=== PATIENT | male | born 1985 | race Caucasian/White ===

== ENCOUNTER 2017-01-22 09:43 | Emergency (ER) | payer BC ==
--- NOTE | 2017-01-22 10:19 | UC ---
Lower Extremity/Ankle HPI - HPI Summary HPI Summary: 31 y/o male with no PMH/ surgery wiht b/l ankles presents with ankle pain, states was running to clock in yesterday so we wouldn't be late at work, felt a small amount of pain, however woke up this morning with more pain. + ice, did not take any medication for it. able to walk, although + pain with increased walking. no pain with driving . no swelling, bruising - History of Current Complaint Chief Complaint: UCLowerExtremity Stated Complaint: RIGHT FOOT PAIN Time Seen by Provider: 01/22/17 10:06 Hx Obtained From: Patient Onset/Duration: Sudden Onset, Lasting Days, Worse Since - this AM Severity Initially: Mild Severity Currently: Mild - Allergies/Home Medications Allergies/Adverse Reactions: Allergies Allergy/AdvReac Type Severity Reaction Status Date / Time No Known Allergies Allergy Verified 01/22/17 09:51 PMH/Surg Hx/FS Hx/Imm Hx Previously Healthy: Yes - Surgical History Surgical History: Yes Surgery Procedure, Year, and Place: big toe - Social History Alcohol Use: Rare Substance Use Type: None Smoking Status (MU): Never Smoked Tobacco Review of Systems Musculoskeletal: Arthralgia, Decreased ROM Is Patient Immunocompromised?: No All Other Systems Reviewed And Are Negative: Yes Physical Exam Triage Information Reviewed: Yes Appearance: Well-Appearing, No Pain Distress, Well-Nourished Vital Signs: Initial Vital Signs Temp 99.4 F 01/22/17 09:47 Pulse 89 01/22/17 09:47 Resp 18 01/22/17 09:47 BP 183/100 01/22/17 09:47 Pulse Ox 99 01/22/17 09:47 Vital Signs Reviewed: Yes Musculoskeletal: Positive: Other: - PT pulses 2+ b/l, neg homans sign, achilles tendon testing shows to be intact, pain over inssertion of achilles onto terry, no warmth, edema, echymosis. sensation intact to light touch grossly throughout. Neurological Exam: Normal Psychological Exam: Normal Skin Exam: Normal Lower Extremity Course/Dx - Course Course Of Treatment: achilles tendon strain, decreased activity, incrase stretching, NSAIDs, ICE. patient in agreement, follow up with ortho within 1- 2 weeks if no imrpovement. BP elevated, likely due to pain, follow up with PCP within 2-3 days for repeat check. - Differential Dx/Diagnosis Differential Diagnosis/HQI/PQRI: Arthritis, Contusion, Dislocation Provider Diagnoses: right achillies tendon strain Discharge - Discharge Plan Condition: Fair Disposition: HOME Prescriptions: Ibuprofen [Eql Ibuprofen] 400 mg PO Q6H PRN #90 tab PRN Reason: Pain Patient Education Materials: Muscle Strain (ED) Referrals: No Primary Care Phys,NOPCP [Primary Care Provider] - Shantanu Mendosa MD [Medical Doctor] - Additional Instructions: - ice after activity - work note for today - Motrin 400 mg every 6-8 hours for pain x 24 hours to decrease swelling - elevate foot - stretches as shown - Follow up with your primary for elevated blood pressure within 2-3 days when pain controlled. Free clinic listed for your information
== END 2017-01-22 10:30 | disposition home or self-care (01) ==
LOC: UCEAST 09:43
DX: S86.011A Strain of right Achilles tendon, initial encounter (principal); X58.XXXA Exposure to other specified factors, initial encounter; Y93.02 Activity, running
CPT/HCPCS: 99202; G0463

== ENCOUNTER 2018-07-17 19:27 | Emergency (ER) | payer BC ==
[2018-07-17 19:55] VITALS: BP 164/82
--- NOTE | 2018-07-17 20:56 | UC ---
Complaint Male HPI - HPI Summary HPI Summary: foul odor and tingling in penis for approx 1-2 wks. reports girlfriend having a UTI and he thinks he may have the same thing. nothing makes it better/worse. - History of Current Complaint Chief Complaint: UCGU Stated Complaint: ODOR IN URINE Time Seen by Provider: 07/17/18 20:16 Hx Obtained From: Patient Pain Intensity: 0 Pain Scale Used: 0-10 Numeric Aggravating Factor(s): Voiding Alleviating Factor(s): Nothing - Allergies/Home Medications Allergies/Adverse Reactions: Allergies Allergy/AdvReac Type Severity Reaction Status Date / Time No Known Allergies Allergy Verified 07/17/18 19:45 Home Medications: Home Medications Amlodipine Besylate [Amlodipine 2.5 mg tab] 5 mg PO DAILY 07/17/18 [History Confirmed 07/17/18] Hydrochlorothiazide TAB* [Hydrodiuril TAB*] 25 mg PO DAILY 07/17/18 [History Confirmed 07/17/18] PMH/Surg Hx/FS Hx/Imm Hx Cardiovascular History: Hypertension - Surgical History Surgical History: Yes Surgery Procedure, Year, and Place: big toe - Social History Alcohol Use: Rare Substance Use Type: None Smoking Status (MU): Never Smoked Tobacco Review of Systems All Other Systems Reviewed And Are Negative: Yes Constitutional: Negative: Fever, Chills Skin: Negative: Rash Gastrointestinal: Negative: Abdominal Pain Genitourinary: Positive: Other - tingling when urinating. Negative: Dysuria, Hematuria, Frequency, Urgency Physical Exam Triage Information Reviewed: Yes Appearance: Well-Appearing Vital Signs: Initial Vital Signs Temp 98.3 F 07/17/18 19:39 Pulse 96 07/17/18 19:39 Resp 16 07/17/18 19:39 BP 164/82 07/17/18 19:39 Pulse Ox 97 07/17/18 19:39 Vital Signs Reviewed: Yes Respiratory Exam: Normal Cardiovascular Exam: Normal Abdomen Description: Negative: CVA Tenderness (R), CVA Tenderness (L) Male Genital Exam: Negative: Other - DECLINED exam Complaint Male Course/Dx - Course Course Of Treatment: Urinary tingling and foul odor of urine. UA showed 3+ protein for which I've asked him to f/u w/ pcp about. No obvious UTI and have sent urine for gc/ chlamydia. exam unremarkable. - Differential Dx/Diagnosis Differential Diagnosis/HQI/PQRI: Urinary Tract Infection, Other Provider Diagnosis: Bad odor of urine Discharge - Sign-Out/Discharge Documenting (check all that apply): Patient Departure All imaging exams completed and their final reports reviewed: No Studies - Discharge Plan Condition: Good Disposition: HOME Patient Education Materials: Dysuria (ED) Referrals: No Primary Care Phys,NOPCP [Primary Care Provider] - Additional Instructions: Please follow up with your primary care provider for your elevated blood pressure and the protein in your urine. At this point there is no obvious infection and we have sent your urine out for further testing. - Billing Disposition and Condition Condition: GOOD Disposition: Home
[2018-07-21 16:46] LABS: Neisseria gonorrhoeae (GC) RNA Negative (Negative)
== END 2018-07-17 20:50 | disposition home or self-care (01) ==
LOC: UCEAST 19:27
DX: R82.90 Unspecified abnormal findings in urine (principal); R20.2 Paresthesia of skin; I10 Essential (primary) hypertension
CPT/HCPCS: 81003; 87491; 87591; 99211; G0463

== ENCOUNTER 2018-09-29 19:41 | Emergency (ER) | payer BC ==
[2018-09-29 20:46] VITALS: BP 153/81
--- NOTE | 2018-09-29 21:00 | UC ---
UC General HPI - HPI Summary HPI Summary: R ear feels like it has fluid in it x 2 days. no fever, uri or drainage. - History of Current Complaint Chief Complaint: UCEar Stated Complaint: RIGHT EAR PAIN Time Seen by Provider: 09/29/18 20:47 Hx Obtained From: Patient Timing: Constant Pain Intensity: 3 Associated Signs & Symptoms: Negative: Fever, Headache - Allergy/Home Medications Allergies/Adverse Reactions: Allergies Allergy/AdvReac Type Severity Reaction Status Date / Time No Known Allergies Allergy Verified 09/29/18 20:41 PMH/Surg Hx/FS Hx/Imm Hx Cardiovascular History: Hypertension - Surgical History Surgical History: Yes Surgery Procedure, Year, and Place: big toe ingrown toenail - Family History Known Family History: Positive: Non-Contributory - Social History Occupation: Employed Full-time Alcohol Use: Rare Substance Use Type: None Smoking Status (MU): Never Smoked Tobacco Review of Systems All Other Systems Reviewed And Are Negative: No Constitutional: Negative: Fever, Chills Skin: Negative: Rash ENT: Positive: Ear Ache - R. Negative: Sore Throat, Nasal Discharge, Sinus Congestion, Sinus Pain/Tenderness Neurological: Negative: Headache Physical Exam Triage Information Reviewed: Yes Appearance: Well-Appearing Vital Signs: Initial Vital Signs Temp 98.9 F 09/29/18 20:42 Pulse 91 09/29/18 20:42 Resp 16 09/29/18 20:42 BP 153/81 09/29/18 20:42 Pulse Ox 100 09/29/18 20:42 Vital Signs Reviewed: Yes Eyes: Positive: Conjunctiva Clear ENT: Positive: Pharynx normal, Other - No auricular adenopahty or mastoid tenderness. TM's obscured by cerumen impaction.. Negative: Nasal congestion, Nasal drainage Neck: Positive: Supple, Nontender, No Lymphadenopathy Respiratory: Positive: No respiratory distress Cardiovascular: Positive: RRR Musculoskeletal: Positive: ROM Intact Neurological: Positive: Alert Psychological: Positive: Age Appropriate Behavior Skin Exam: Normal Re-Evaluation - Re-Evaluation First Eval Re-Evaluation Time: 21:22 Change: Improved - tm's high, canals clear and ear discomfort resolved Course/Dx - Diagnoses Provider Diagnosis: Cerumen impaction Discharge - Sign-Out/Discharge Documenting (check all that apply): Patient Departure All imaging exams completed and their final reports reviewed: No Studies - Discharge Plan Condition: Stable Disposition: HOME Patient Education Materials: Cerumen Impaction (ED) Referrals: No Primary Care Phys,NOPCP [Primary Care Provider] - Additional Instructions: FOLLOW UP WITH DIRECTORY OPERATOR NEEDED. - Billing Disposition and Condition Condition: STABLE Disposition: Home - Attestation Statements Provider Attestation: Per institutional requirements, I have reviewed the chart, however, I was not consulted specifically or made aware of this patient by the midlevel provider. I did not personally evaluate, interact with , or disposition this patient.
== END 2018-09-29 21:42 | disposition home or self-care (01) ==
LOC: UCCORT 19:41
DX: H61.21 Impacted cerumen, right ear (principal); I10 Essential (primary) hypertension
CPT/HCPCS: 99213; G0463

== ENCOUNTER 2018-12-26 11:52 | Emergency (ER) | payer BC ==
--- NOTE | 2018-12-26 12:56 | ED ---
GI/ HPI - HPI Summary HPI Summary: 33 year old male presenting to ED with a chief complaint of left testicular pain since this morning. The patient rates the pain 2/10 in severity. He reports a single episode of hematuria, although he has voided since then without significant blood in his urine. Per patient, he had abdominal discomfort that alleviated after a bowel movement. He denies dysuria, fever, chills, back pain, and penile discharge. Patient is sexually active with one partner but does not use protection. PMHx of high blood pressure. - History of Current Complaint Chief Complaint: EDUrogenitalProblems Time Seen by Provider: 12/26/18 12:25 Stated Complaint: FLANK PAIN PER PT Hx Obtained From: Patient Onset/Duration: Started Hours Ago, Still Present Timing: Constant, Lasting Hours Severity: Mild Current Severity: Mild Pain Intensity: 2 Additional Locations for Males: Testicles Pain Characteristics: Sharp Associated Signs and Symptoms: Positive: Hematuria, Abdominal Pain. Negative: Back Pain, Fever, Chills Additional Signs & Symptoms: Negative: Penile Discharge Aggravating Factor(s): Nothing Alleviating Factor(s): Bowel Movements - Allergy/Home Medications Allergies/Adverse Reactions: Allergies Allergy/AdvReac Type Severity Reaction Status Date / Time No Known Allergies Allergy Verified 12/26/18 12:21 PMH/Surg Hx/FS Hx/Imm Hx Previously Healthy: Yes Endocrine/Hematology History: Denies: Hx Diabetes Cardiovascular History: Reports: Hx Hypertension - Surgical History Surgery Procedure, Year, and Place: big toe ingrown toenail Infectious Disease History: No Infectious Disease History: Denies: Traveled Outside the [place] in Last 30 Days - Family History Known Family History: Positive: Hypertension, Diabetes, Other - HLD - Social History Alcohol Use: Rare Hx Substance Use: No Substance Use Type: Reports: None Hx Tobacco Use: No Smoking Status (MU): Never Smoked Tobacco Review of Systems Negative: Fever, Chills Positive: Abdominal Pain Positive: hematuria, pain - left testicle. Negative: dysuria, discharge Negative: Myalgia - back pain All Other Systems Reviewed And Are Negative: Yes Physical Exam - Summary Physical Exam Summary: VITAL SIGNS: Reviewed. GENERAL: Patient is a well-developed and nourished male who is lying comfortable in the stretcher. Patient is not in any acute respiratory distress. Patient is obese. HEAD AND FACE: Normocephalic and atraumatic. EYES: PERRLA, EOMI x 2, No injected conjunctiva. EARS: Hearing grossly intact. Ear canals and tympanic membranes are WNL. MOUTH: Oropharynx within normal limits. NECK: Supple, trachea is midline, no adenopathy, no JVD. CHEST: Symmetric, no tenderness at palpation. LUNGS: Clear to auscultation bilaterally. No wheezing or crackles. CVS: RRR, S1 and S2 present, no murmurs or gallops appreciated. ABDOMEN: Soft, non-tender. No signs of distention. Positive bowel sounds. No rebound, no guarding, and no masses palpated. No abdominal bruit or pulsations. EXTREMITIES: FROM in all major joints, no edema, no cyanosis or clubbing. NEURO: Alert and oriented x 3. No acute neurological deficits. Speech is normal. SKIN: Dry and warm. : Circumcised penis, both testicles are descended. Tenderness in left testicle. No masses are appreciated. Positive cremasteric reflex. No penile discharge. Triage Information Reviewed: Yes Vital Signs On Initial Exam: Initial Vitals Temp Pulse Resp BP Pulse Ox 99.2 F 95 20 175/109 96 12/26/18 11:59 12/26/18 11:59 12/26/18 11:59 12/26/18 11:59 12/26/18 11:59 Vital Signs Reviewed: Yes Diagnostics - Vital Signs Vital Signs Temp Pulse Resp BP Pulse Ox 12/26/18 12:23 173/107 12/26/18 11:59 99.2 F 95 20 175/109 96 - Laboratory Lab Statement: Any lab studies that have been ordered have been reviewed, and results considered in the medical decision making process. - Ultrasound Testicular US Ultrasound Interpretation Completed By: Radiologist Summary of Ultrasound Findings: Testicular US shows no evidence for epididymo- orchitis, testicular torsion, or presence of a suspicious intratesticular lesion. ED Physician has reviewed this report. GIGU Course/Dx - Course Assessment/Plan: Patient is a 33-year-old male who presents to the ED with a chief complaint of having blood in the urine and left testicular pain. Testicular ultrasound impression: No evidence of epididymo-orchitis, testicular torsion, or presence of suspicious testicular lesion. Urinalysis is negative for UTI. 1+ blood. Multiple re-examinations of the abdomen reveal that there is no abdominal tenderness. He also reports that his testicular pain has resolved. Patient has Hx of HTN and he has run out of his medications. Therefore, he was given Norvasc and HCTZ. I discussed all the findings and test results with the patient. Patient was instructed to return to the emergency room immediately if any of the symptoms return worsens. Plan of care was discussed with the patient and understands and agrees. All questions were answered at patient satisfaction. There were no further complaints or concerns. Lung exam before discharge: CTA B/L. Good air exchange. No wheezing or crackles heard. CVS: S1 and S2 present. No murmurs appreciated. Patient is alert and oriented x 3. Patient is hemodynamically stable. Patient will be discharged home with follow up PCP in the next 2-3 days - Diagnoses Provider Diagnoses: Testicular pain, Painless hematuria, Uncontrolled hypertension Discharge ED - Sign-Out/Discharge Documenting (check all that apply): Patient Departure Patient Received Moderate/Deep Sedation with Procedure: No - Discharge Plan Condition: Stable Disposition: HOME Prescriptions: Amlodipine Besylate [Amlodipine 2.5 mg tab] 5 mg PO DAILY #30 tablet Hydrochlorothiazide TAB* [Hydrodiuril TAB*] 25 mg PO DAILY #30 tab Forms: *Work Release Referrals: Jayden Hallman MD [Medical Doctor] - Additional Instructions: Follow up with Urologist in 2-3 days. Return to Emergency Department if symptoms worsen. - Billing Disposition and Condition Condition: STABLE Disposition: Home - Attestation Statements Document Initiated by Juan Cibe: Yes Documenting Scribe: Brittany Rodriguez Provider For Whom Mag[facility] is Documenting (Include Credential): Dr. Alden Alfaro MD. Scribe Attestation: I, Brittany Rodriguez, scribed for Dr. Alden Alfaro MD. on at 1123. Scribe Documentation Reviewed: Yes Provider Attestation: The documentation as recorded by the magaly, Brittany Rodriguez accurately reflects the service I personally performed and the decisions made by me, Dr. Alden Alfaro MD. Status of Scribe Document: Viewed
[2018-12-26] MEDS ORDERED: amLODIPine TAB* 5 MG PO ONE (13:28)
[2018-12-26] MEDS ORDERED: Hydrochlorothiazide TAB* 25 MG PO ONE (13:28)
[2018-12-26 13:30] LABS: Urine Appearance Clear; Urine Bacteria Absent (Absent); Urine Bilirubin Negative (Negative); Urine Blood 1+ (Negative); Urine Color Yellow; Urine Glucose Negative (Negative); Urine Ketones Negative (Negative); Urine Nitrite Negative (Negative); Urine Protein 2+(100 mg/dL) (Negative); Urine Red Blood Cell 2+(6-10/hpf) (Absent); Urine Specific Gravity 1.012 (1.010-1.030); Urine Urobilinogen Negative (Negative); Urine White Blood Cell Trace(0-5/hpf) (Absent)
[2018-12-26 14:57] VITALS: BP 127/81
== END 2018-12-26 15:10 | disposition home or self-care (01) ==
LOC: ED 11:52
DX: N50.812 Left testicular pain (principal); R31.9 Hematuria, unspecified; I10 Essential (primary) hypertension; Z79.899 Other long term (current) drug therapy
CPT/HCPCS: 76870; 81003; 81015; 87086; 99284; A9270-GY